=== PATIENT | female | born 1930 | race Caucasian/White ===

== ENCOUNTER 2017-02-25 17:09 | Emergency (ER) | payer OTHER, BC ==
--- NOTE | 2017-02-25 17:11 | PDOC ---
History of Present Illness - General History Source: Patient Exam Limitations: No Limitations - History of Present Illness Initial Comments: 02/25/17 17:22 The patient is a 86 year old female,with a significant past medical history of diverticulitis and chronic UTIs(resistance to cipro), who presents to the emergency department complaining of nausea and chills since this morning. Patient reports she went to bed feeling her normal self, but when she woke up this morning she experienced some rectal pressure, nausea, and chills. The patient reports associated left lower quadrant pain, but denies any vomiting, diarrhea, or constipation. The patient reports her symptoms are similar to when she has had diverticulitis in the past. She denies any fever, headache, or dizziness. She denies any dysuria, hematuria, frequency, or urgency. She denies any recent travel or sick contacts. Patient was recently started on a new antibiotic for her UTIs, but she has not been compliant with her dosage secondary to discomfort. Allergies: NKDA Past Surgical History: None reported Social History: Non smoker. No ETOH or drug use. PCP: Dr. Darlene Garrison <Blaine Real - Last Filed: 02/25/17 17:22> <Perfecto Diane - Last Filed: 02/25/17 18:35> - General Chief Complaint: Pain Stated Complaint: ABD, RECTAL PAIN Time Seen by Provider: 02/25/17 17:10 Past History <Blaine Real - Last Filed: 02/25/17 17:22> <Perfecto Diane - Last Filed: 02/25/17 18:35> - Past Medical History Allergies/Adverse Reactions: Allergies Allergy/AdvReac Type Severity Reaction Status Date / Time No Known Allergies Allergy Verified 02/25/17 17:10 Home Medications: Ambulatory Orders Atenolol [Tenormin -] 25 mg PO DAILY 02/25/17 Methenamine Mandelate 1 gm PO BID 02/25/17 Phenazopyridine HCl [Pyridium] 200 mg PO BID 02/25/17 Pramipexole Di-HCl [Mirapex ER] 0.75 mg PO BID 02/25/17 Review of Systems - Review of Systems Able to Perform ROS?: Yes Comments:: 02/25/17 17:22 GENERAL/CONSTITUTIONAL: es: +chills. No fever. No weakness. HEAD, EYES, EARS, NOSE AND THROAT: No change in vision. No ear pain or discharge. No sore throat. CARDIOVASCULAR: No chest pain or shortness of breath. RESPIRATORY: No cough, wheezing, or hemoptysis. GASTROINTESTINAL: Yes: +LLQ pain, +nausea, +rectal pressure. No vomiting, diarrhea or constipation. GENITOURINARY: No dysuria, frequency, or change in urination. MUSCULOSKELETAL: No joint or muscle swelling or pain. No neck or back pain. SKIN: No rash NEUROLOGIC: No headache, vertigo, loss of consciousness, or change in strength/ sensation. ENDOCRINE: No increased thirst. No abnormal weight change. HEMATOLOGIC/LYMPHATIC: No anemia, easy bleeding, or history of blood clots. ALLERGIC/IMMUNOLOGIC: No hives or skin allergy. <Blaine Real - Last Filed: 02/25/17 17:22> *Physical Exam - Vital Signs Last Vital Signs Temp Pulse Resp BP Pulse Ox 99.2 F 101 H 20 177/102 96 02/25/17 17:10 02/25/17 17:10 02/25/17 17:10 02/25/17 17:10 02/25/17 17:10 - Physical Exam Comments: 02/25/17 17:23 GENERAL: Awake, alert, and fully oriented, in no acute distress HEAD: No signs of trauma EYES: PERRLA, EOMI, sclera anicteric, conjunctiva clear ENT: Auricles normal inspection, hearing grossly normal, nares patent, oropharynx clear without exudates. Moist mucosa NECK: Normal ROM, supple, no lymphadenopathy, JVD, or masses LUNGS: Breath sounds equal, clear to auscultation bilaterally. No wheezes, and no crackles HEART: Regular rate and rhythm, normal S1 and S2, no murmurs, rubs or gallops ABDOMEN: Tenderness to palpation to the LLQ, but no guarding or rebound. Soft, normoactive bowel sounds. No masses EXTREMITIES: Normal range of motion, no edema. No clubbing or cyanosis. No cords, erythema, or tenderness NEUROLOGICAL: Cranial nerves II through XII grossly intact. Normal speech, normal gait SKIN: Warm, Dry, normal turgor, no rashes or lesions noted. <Blaine Real - Last Filed: 02/25/17 17:22> ED Treatment Course - LABORATORY CBC & Chemistry Diagram: 02/25/17 17:25 02/25/17 17:25 <Perfecto Diane - Last Filed: 02/25/17 18:35> Progress Note - Progress Note Progress Note: Rectal exam deferred by pt, risks and benefits discussed with pt. Chronic UTI, on Mendalamine and Pyridum for this. Resistant to Cipro. CT ordered for abdomen/pelvis, await results. Case will be endorsed to Dr. Mcfadden at 1900 for further disposition.d <Perfecto Diane - Last Filed: 02/25/17 18:35> *DC/Admit/Observation/Transfer - Attestations Scribe Attestion: 02/25/17 17:23 Documentation prepared by Blaine Real, acting as medical practice administrator for Perfecto Diane MD. <Blaine Real - Last Filed: 02/25/17 17:22> <Perfecto Diane - Last Filed: 02/25/17 18:35> Diagnosis at time of Disposition: Abdominal pain Qualifiers: Abdominal location: left lower quadrant Qualified Code(s): R10.32 - Left lower quadrant pain Urinary tract infection Qualifiers: Urinary tract infection type: site unspecified Hematuria presence: without hematuria Qualified Code(s): N39.0 - Urinary tract infection, site not specified - Discharge Dispostion Condition at time of disposition: Stable - Referrals Referrals: Darlene Garrison MD [Primary Care Provider] -
[2017-02-25] MEDS ORDERED: ONDANSETRON 4 MG/2 ML VIAL IVPUSH ONE (17:16)
[2017-02-25] MEDS ORDERED: SODIUM CHLORIDE 1,000 ML IV STA (17:16)
[2017-02-25] MEDS ORDERED: LEVOFLOXACIN 500 MG IVPB 100 ML IVPB ONE ×2 (17:17→17:25)
[2017-02-25] MEDS ORDERED: METRONIDAZOLE 500 MG PREMIXED 100 ML IVPB ONE ×2 (17:17→17:26)
[2017-02-25] MEDS ORDERED: ONDANSETRON 4 MG/2 ML VIAL ONE (17:25)
[2017-02-25 17:42] LABS: BASOPHIL 0.3 % (0-2.0); EOSINOPHIL 0.4 % (0-4.5); MCHC 33.3 g/dl (32.0-36.0); MEAN CELL VOLUME 89.9 fl (80-96); MEAN PLT VOLUME 8.5 fl (7.5-11.1); NEUTROPHILS 80.8 % (42.8-82.8); PLATELET COUNT 284 K/MM3 (134-434); RDW 13.5 % (11.6-15.6); WHITE BLOOD COUNT 12.8 K/mm3 (4.0-10.8)
[2017-02-25 17:48] LABS: PH,URINE 5.5 (4.5-8); URINE APPEARANCE Clear; URINE BILIRUBIN Negative (NEGATIVE); URINE GLUCOSE (UA) Trace (NEGATIVE); URINE KETONE Trace (NEGATIVE); URINE NITRITE Positive (NEGATIVE); URINE PROTEIN Trace (NEGATIVE)
[2017-02-25 17:50] LABS: URINE BLOOD 1+ (NEGATIVE); URINE COLOR DK YELLOW; URINE LEUK ESTERASE TRACE (NEGATIVE)
[2017-02-25 17:58] LABS: URINE BACTERIA MODERATE /hpf (NEGATIVE)
[2017-02-25 18:02] LABS: ALBUMIN 4.4 g/dl (3.5-5.0); ALK PHOS 51 U/L (32-92); ANION GAP 8 (8-16); BILIRUBIN,TOTAL 1.6 mg/dl (0.2-1.0); CALCIUM 9.3 mg/dl (8.4-10.2); CO2 24 mmol/L (22-28); CREATININE 0.6 mg/dl (0.6-1.3); GLUCOSE,RANDOM 92 mg/dl (74-106); SGOT/AST 22 U/L (10-42); SGPT/ALT 12 U/L (10-40); TOT PROT 6.6 g/dl (6.4-8.3)
--- NOTE | 2017-02-25 21:01 | PDOC ---
*Physical Exam - Vital Signs Last Vital Signs Temp Pulse Resp BP Pulse Ox 99 F 90 18 147/75 99 02/25/17 19:02 02/25/17 19:02 02/25/17 19:02 02/25/17 19:02 02/25/17 19:02 ED Treatment Course - LABORATORY CBC & Chemistry Diagram: 02/25/17 17:25 02/25/17 17:25 - ADDITIONAL ORDERS Additional order review: Laboratory Results 02/25/17 02/25/17 17:25 17:18 Sodium 132 L Potassium 3.6 Chloride 100 Carbon Dioxide 24 Anion Gap 8 BUN 15 Creatinine 0.6 Creat Clearance w eGFR > 60 Random Glucose 92 Calcium 9.3 Total Bilirubin 1.6 H AST 22 ALT 12 Alkaline Phosphatase 51 Total Protein 6.6 Albumin 4.4 Lipase 20 L Urine Color Dk yellow Urine Appearance Clear Urine pH 5.5 Ur Specific [place] <= 1.005 Urine Protein Trace Urine Glucose (UA) Trace Urine Ketones Trace Urine Blood 1+ H Urine Nitrite Positive Urine Bilirubin Negative Urine Urobilinogen 1.0 Ur Leukocyte Esterase Trace H Urine RBC 5-10 Urine WBC 3-5 Ur Epithelial Cells Few Urine Bacteria Moderate 02/25/17 17:25 RBC 4.85 MCV 89.9 MCHC 33.3 RDW 13.5 MPV 8.5 Neutrophils % 80.8 Lymphocytes % 12.8 Monocytes % 5.7 Eosinophils % 0.4 Basophils % 0.3 - Medications Given in the ED: ED Medications Discontinued Medications Generic Name Dose Route Start Last Admin Trade Name Nikky PRN Reason Stop Dose Admin Metronidazole 100 mls @ 100 mls/hr 02/25/17 17:17 02/25/17 17:40 Flagyl 500mg Premixed Ivpb - IVPB 02/25/17 18:16 100 mls/hr ONCE ONE Administration Levofloxacin 100 mls @ 100 mls/hr 02/25/17 17:17 02/25/17 18:10 Levaquin 500 Mg Premixed Ivpb - IVPB 02/25/17 18:16 100 mls/hr ONCE ONE Administration Sodium Chloride 1,000 mls @ 1,000 mls/hr 02/25/17 17:16 02/25/17 17:35 Normal Saline - IV 02/25/17 18:15 1,000 mls/hr ASDIR STA Administration Ondansetron HCl 4 mg 02/25/17 17:16 02/25/17 17:35 Zofran Injection IVPUSH 02/25/17 17:17 4 mg ONCE ONE Administration Progress Note - Progress Note Progress Note: The patient was transferred to pr from Dr. Eastman at 1900 hrs. Patient is an 86-year-old female who comes in complaining of left lower quadrant and rectal pain. Patient has a history of diverticulosis. Patient had a workup that included a white count of 12.8 but no left shift. Patient was afebrile here in the emergency room. Patient has a CAT scan pending. 21:00 Patient's CAT scan showed diverticula but no acute diverticulitis. Patient's appendix is at the upper limit of normal. Assessment and plan: This is a 86-year-old female with lower abdominal pain and rectal pain. Patient has a mildly elevated white count of 12.8 but no left shift. Patient is afebrile in the emergency room. On my exam patient is tender in both the right lower quadrant and suprapubic area. Patient's urine does show a urinary tract infection. Patient gives me a history of chronic urinary tract infections. Given the fact the patient has an elevated white count some mild right lower quadrant tenderness and rectal discomfort I am concerned that she may have a retrocecal appendix. Patient will be admitted to an observation bed overnight to see how she does be evaluated by a surgeon in the morning for possible appendicitis. *DC/Admit/Observation/Transfer Diagnosis at time of Disposition: Abdominal pain Qualifiers: Abdominal location: left lower quadrant Qualified Code(s): R10.32 - Left lower quadrant pain UTI (urinary tract infection) Qualifiers: Urinary tract infection type: site unspecified Hematuria presence: without hematuria Qualified Code(s): N39.0 - Urinary tract infection, site not specified - Discharge Dispostion Condition at time of disposition: Stable Admit: Yes - Referrals Referrals: Darlene Garrison MD [Primary Care Provider] - - Patient Instructions - Post Discharge Activity
--- NOTE | 2017-02-25 22:23 | HP ---
CHIEF COMPLAINT: Abdominal Pain PCP: Dr. Garrison HISTORY OF PRESENT ILLNESS: This is a 86 y/o woman with a past medical history of Diverticulitis, Hypertension, Chronic UTIs (Cipro resistant). Parkinson's. Who presents to the ED with nausea, chills, rectal pressure, and LLQ pain. Patient reports being treated for her chronic UTI, and not taking the medication because she was not improving. Patient reports having a constant dull cramping to her LLQ, with sometimes severe rectal pressure. She reports taking Miralex and having a loose brown BM today. Patient reports taking pyridum for her bladder spasms. Patient denies fever, cough, CP, N/V. ER course was notable for: (1) UA- +nitrate, trace leukocytes, +1 blood (2) WBC 12.8 (3) CTAP- +Diverticulitis Recent Travel: None PAST MEDICAL HISTORY: See HPI PAST SURGICAL HISTORY: Hernia Repair x2 Childbirth Social History: Smoking: Never Alcohol: None Drugs: None Lives with spouse, Independent Family History: Father- Diverticulitis Family hx Intestinal Issues Allergies No Known Allergies Allergy (Verified 02/25/17 17:10) HOME MEDICATIONS: Home Medications Medication Instructions Recorded Atenolol [Tenormin -] 25 mg PO DAILY 02/25/17 Methenamine Mandelate 1 gm PO BID 02/25/17 Phenazopyridine HCl [Pyridium] 200 mg PO BID 02/25/17 Polyethylene Glycol 3350 [Miralax 17 gm PO DAILY 02/25/17 (For Daily Use) -] Pramipexole Di-HCl [Mirapex ER] 0.75 mg PO BID 02/25/17 REVIEW OF SYSTEMS CONSTITUTIONAL: chills Absent: fever, diaphoresis, generalized weakness, malaise, loss of appetite, weight change HEENT: Absent: rhinorrhea, nasal congestion, throat pain, throat swelling, difficulty swallowing, mouth swelling, ear pain, eye pain, visual changes CARDIOVASCULAR: Absent: chest pain, syncope, palpitations, irregular heart rate, lightheadedness , peripheral edema RESPIRATORY: Absent: cough, shortness of breath, dyspnea with exertion, orthopnea, wheezing, stridor, hemoptysis GASTROINTESTINAL:abdominal pain, nausea, constipation Absent: abdominal distension, vomiting, diarrhea, melena, hematochezia GENITOURINARY: dysuria, urgency Absent: frequency, hesitancy, hematuria, flank pain, genital pain MUSCULOSKELETAL: Absent: myalgia, arthralgia, joint swelling, back pain, neck pain SKIN: Absent: rash, itching, pallor HEMATOLOGIC/IMMUNOLOGIC: Absent: easy bleeding, easy bruising, lymphadenopathy, frequent infections ENDOCRINE: Absent: unexplained weight gain, unexplained weight loss, heat intolerance, cold intolerance NEUROLOGIC: Absent: headache, focal weakness or paresthesias, dizziness, unsteady gait, seizure, mental status changes, bladder or bowel incontinence PSYCHIATRIC: Absent: anxiety, depression, suicidal or homicidal ideation, hallucinations. PHYSICAL EXAMINATION Vital Signs - 24 hr 02/25/17 02/25/17 17:10 19:02 Temperature 99.2 F 99 F Pulse Rate 101 H Pulse Rate [ 90 Left Apical] Respiratory 20 18 Rate Blood Pressure 177/102 Blood Pressure 147/75 [Left Arm] O2 Sat by Pulse 96 99 Oximetry (%) GENERAL: Awake, alert, and fully oriented, in no acute distress. HEAD: Normal with no signs of trauma. EYES: Pupils equal, round and reactive to light, extraocular movements intact, sclera anicteric, conjunctiva clear. No lid lag. EARS, NOSE, THROAT: Ears normal, nares patent, oropharynx clear without exudates. Dry mucous membranes. NECK: Normal range of motion, supple without lymphadenopathy, JVD, or masses. LUNGS: Breath sounds equal, clear to auscultation bilaterally. No wheezes, and no crackles. No accessory muscle use. HEART: Regular rate and rhythm, normal S1 and S2 without murmur, rub or gallop. ABDOMEN: Soft, not distended, no guarding, no rebound, no masses. No hepatomegaly or splenomegaly. LLQ, umbilical tenderness, hypoactive bowel sounds RECTAL EXAM: Patient declined MUSCULOSKELETAL: Normal range of motion at all joints. No bony deformities or tenderness. No CVA tenderness. UPPER EXTREMITIES: 2+ pulses, warm, well-perfused. No cyanosis. No clubbing. No peripheral edema. LOWER EXTREMITIES: 2+ pulses, warm, well-perfused. No calf tenderness. No peripheral edema. NEUROLOGICAL: Cranial nerves II-XII intact. Normal speech. Gait not observed. PSYCHIATRIC: Cooperative. Good eye contact. Appropriate mood and affect. SKIN: Warm, dry, normal turgor, no rashes or lesions noted, normal capillary refill. Laboratory Results - last 24 hr 02/25/17 02/25/17 02/25/17 17:18 17:25 17:25 WBC 12.8 H RBC 4.85 Hgb 14.6 Hct 43.6 MCV 89.9 MCH 30.0 MCHC 33.3 RDW 13.5 Plt Count 284 MPV 8.5 Neutrophils % 80.8 Lymphocytes % 12.8 Monocytes % 5.7 Eosinophils % 0.4 Basophils % 0.3 Sodium 132 L Potassium 3.6 Chloride 100 Carbon Dioxide 24 Anion Gap 8 BUN 15 Creatinine 0.6 Creat Clearance w eGFR > 60 Random Glucose 92 Lactic Acid Calcium 9.3 Total Bilirubin 1.6 H AST 22 ALT 12 Alkaline Phosphatase 51 Total Protein 6.6 Albumin 4.4 Lipase 20 L Urine Color Dk yellow Urine Appearance Clear Urine pH 5.5 Ur Specific [place] <= 1.005 Urine Protein Trace Urine Glucose (UA) Trace Urine Ketones Trace Urine Blood 1+ H Urine Nitrite Positive Urine Bilirubin Negative Urine Urobilinogen 1.0 Ur Leukocyte Esterase Trace H Urine RBC 5-10 Urine WBC 3-5 Ur Epithelial Cells Few Urine Bacteria Moderate 02/25/17 21:15 WBC RBC Hgb Hct MCV MCH MCHC RDW Plt Count MPV Neutrophils % Lymphocytes % Monocytes % Eosinophils % Basophils % Sodium Potassium Chloride Carbon Dioxide Anion Gap BUN Creatinine Creat Clearance w eGFR Random Glucose Lactic Acid 0.9 Calcium Total Bilirubin AST ALT Alkaline Phosphatase Total Protein Albumin Lipase Urine Color Urine Appearance Urine pH Ur Specific [place] Urine Protein Urine Glucose (UA) Urine Ketones Urine Blood Urine Nitrite Urine Bilirubin Urine Urobilinogen Ur Leukocyte Esterase Urine RBC Urine WBC Ur Epithelial Cells Urine Bacteria ASSESSMENT/PLAN: This is a 86 y/o woman with a PMHx of HTN, Diverticulitis, Parkinson's. Placed on Observation for Abdominal Pain for further evaluation of their emergent condition. Problem List - Problem (1) Abdominal pain Assessment/Plan: - Likely secondary to UTI - CTAP- Divericulia, no acute Diverticulitis, Appendix appears upper limit of normal - Appreciate Surgical Consult - WBC 12.5, no shift, lactic acid- 0.9, patient is afebrile - Blood Cultures-pending - Levofloxacin, Metronidazole given in ED for ?AP - Will repeat CBC, BMP - NPO - IVF - Monitor vitals Code(s): R10.9 - UNSPECIFIED ABDOMINAL PAIN Qualifiers: Abdominal location: left lower quadrant Qualified Code(s): R10.32 - Left lower quadrant pain (2) UTI (urinary tract infection) Assessment/Plan: - Hx Chronic UTIs, resistant to Ciprofloxacin - UA- +nitrate, +1 blood, trace leukocyte - Urine Culture-pending - Will hold her home med, start Ceftriaxone Code(s): N39.0 - URINARY TRACT INFECTION, SITE NOT SPECIFIED Qualifiers: Urinary tract infection type: site unspecified Hematuria presence: without hematuria Qualified Code(s): N39.0 - Urinary tract infection, site not specified; R31.9 - Hematuria, unspecified (3) HTN (hypertension) Assessment/Plan: - Controlled - Monitor BP - Continue Tenormin with parameters Code(s): I10 - ESSENTIAL (PRIMARY) HYPERTENSION (4) Parkinson disease Assessment/Plan: - Continue Mirapex (patient may use own) Code(s): G20 - PARKINSON'S DISEASE (5) DVT prophylaxis Assessment/Plan: - OOB - SCDs Code(s): [id number] - Visit type - Emergency Visit Emergency Visit: Yes ED Registration Date: 02/25/17 Care time: The patient presented to the Emergency Department on the above date and was hospitalized for further evaluation of their emergent condition. - New Patient This patient is new to me today: Yes Date on this admission: 02/26/17 - Critical Care Critical Care patient: No
[2017-02-25] MEDS ORDERED: ONDANSETRON 4 MG/2 ML VIAL IVPB PRN (22:27)
[2017-02-25] MEDS ORDERED: ACETAMINOPHEN 325 MG TABLET (FP) PO PRN (22:39)
[2017-02-25 23:31] VITALS: BMI 28.6
[2017-02-25] MEDS ORDERED: PRAMIPEXOLE DI HCL 0.75 MG PO SCH (23:45)
[2017-02-25] MEDS ORDERED: ATENOLOL 25 MG TABLET (FP) PO ONE (23:49)
[2017-02-26] MEDS: DEXTROSE 5%-0.45% SALINE 1,000 ML IV SCH ×2 (00:05→23:23)
[2017-02-26 07:53] LABS: BASOPHIL 0.9 % (0-2.0); EOSINOPHIL 0.2 % (0-4.5); MCH 29.6 pg (25.7-33.7); MCHC 33.2 g/dl (32.0-36.0); MEAN CELL VOLUME 89.2 fl (80-96); MEAN PLT VOLUME 8.8 fl (7.5-11.1); NEUTROPHILS 80.9 % (42.8-82.8); PLATELET COUNT 234 K/MM3 (134-434); RDW 13.1 % (11.6-15.6); WHITE BLOOD COUNT 8.7 K/mm3 (4.0-10.8)
[2017-02-26 08:12] LABS: ANION GAP 6 (8-16); CALCIUM 8.5 mg/dl (8.4-10.2); CO2 23 mmol/L (22-28); CREATININE 0.6 mg/dl (0.6-1.3); GLUCOSE,RANDOM 94 mg/dl (74-106); PHOSPHOROUS 2.6 mg/dl (2.5-4.6)
[2017-02-26] MEDS ORDERED: PT OWN MED DRAWER 7, Y5N ONE ×2 (09:19→21:15)
[2017-02-26] MEDS: CEFTRIAXONE 50 ML IVPB SCH (09:21)
--- NOTE | 2017-02-26 09:57 | CONSULT ---
- Consultation REQUESTING PROVIDER: BACILIO GANDHI CONSULT REQUEST: We have been asked to surgically evaluate this patient for abdominal pain. PCP:Laurel Anderson HISTORY OF PRESENT ILLNESS: CTSP for management of acute onset of LLQ pain w/ associated nausea and/or diarrhea w/o vomiting; she has a h/o diverticulitis in the past txed w/medical tx. She states she feels better since admission; there was a ? concern? for retrocecal appendicitis. PMHx: hypertension/frequent UTI's PSHx: hernia repaire # years ago Home Medications Medication Instructions Recorded Atenolol [Tenormin -] 25 mg PO DAILY 02/25/17 Methenamine Mandelate 1 gm PO BID 02/25/17 Phenazopyridine HCl [Pyridium] 200 mg PO BID 02/25/17 Polyethylene Glycol 3350 [Miralax 17 gm PO DAILY 02/25/17 (For Daily Use) -] Pramipexole Di-HCl [Mirapex ER] 0.75 mg PO BID 02/25/17 Allergies Allergy/AdvReac Type Severity Reaction Status Date / Time No Known Allergies Allergy Verified 02/25/17 17:10 PHYSICAL EXAM: GENERAL: Awake, alert, and fully oriented, in no acute distress. HEAD: Normal with no signs of trauma. EYES: sclera anicteric, conjunctiva clear. NECK: Normal ROM, supple without lymphadenopathy, JVD, or masses. ABDOMEN: Soft, nontender, not distended, normoactive bowel sounds, no guarding, no rebound, no masses. No organomegaly. No hernias MUSCULOSKELETAL: Normal ROM at all joints. No bony deformities or tenderness. No CVA tenderness. UPPER EXTREMITIES: 2+ pulses, warm, well-perfused. No cyanosis. Cap refill <2 seconds. No peripheral edema. LOWER EXTREMITIES: 2+ pulses, warm, well-perfused. No calf tenderness. No peripheral edema. NEUROLOGICAL: Normal speech, gait not observed. PSYCH: Cooperative. Good eye contact. Appropriate mood and affect. SKIN: Warm, dry, normal turgor, no rashes or lesions noted. Vital Signs Temperature 99.3 F 02/26/17 06:29 Pulse Rate 74 02/26/17 06:29 Respiratory Rate 18 02/26/17 06:29 Blood Pressure 127/62 02/26/17 06:29 O2 Sat by Pulse Oximetry (%) 94 L 02/26/17 08:33 Lab Results WBC 8.7 K/mm3 (4.0-10.8) D 02/26/17 07:00 RBC 4.35 M/mm3 (3.60-5.2) 02/26/17 07:00 Hgb 12.9 GM/dl (10.7-15.3) D 02/26/17 07:00 Hct 38.8 % (32.4-45.2) 02/26/17 07:00 MCV 89.2 fl (80-96) 02/26/17 07:00 MCHC 33.2 g/dl (32.0-36.0) 02/26/17 07:00 RDW 13.1 % (11.6-15.6) 02/26/17 07:00 Plt Count 234 K/MM3 (134-434) 02/26/17 07:00 Sodium 136 mmol/L (136-145) 02/26/17 07:00 Potassium 3.6 mmol/L (3.5-5.1) 02/26/17 07:00 Chloride 107 mmol/L (98-107) 02/26/17 07:00 Carbon Dioxide 23 mmol/L (22-28) 02/26/17 07:00 Anion Gap 6 (8-16) L 02/26/17 07:00 BUN 12 mg/dl (7-18) 02/26/17 07:00 Creatinine 0.6 mg/dl (0.6-1.3) 02/26/17 07:00 Random Glucose 94 mg/dl (74-106) 02/26/17 07:00 Calcium 8.5 mg/dl (8.4-10.2) 02/26/17 07:00 CT scan a/p reviewed; labs reviewed IMP: Nonspecific left colon colitis and abnormal findings w/r/t the left ureter (? source of her frequent ? UTI's); need for cysto/retrograde and or further urological w/u. PLAN: Trial of clear liquid diet and as per primary care team; no evidence of an acute surgical abdomen at this time. Kyaw Lyon MD FACS Visit type - Case Type Case Type: ED Admission - Emergency Emergency Visit: Yes ED Registration Date: 02/25/17 Care time: The patient presented to the Emergency Department on the above date and was hospitalized for further evaluation of their emergent condition. - New patient This patient is new to me today: No - Critical Care Critical Care patient: No
[2017-02-26] MEDS ORDERED: ATENOLOL 25 MG TABLET (FP) PO SCH ×3 (10:00→22:00)
[2017-02-26] MEDS: PRAMIPEXOLE 0.75 MG PO SCH ×2 (10:52→21:23)
--- NOTE | 2017-02-26 11:32 | DS ---
Physical Exam: SUBJECTIVE: Patient seen and examined, reports feeling better wants to go home. OBJECTIVE:This is a 86 y/o woman with a past medical history of Diverticulitis, Hypertension, Chronic UTIs (Cipro resistant). Parkinson's. Who presents to the ED with nausea, chills, rectal pressure, and LLQ pain. Patient reports being treated for her chronic UTI, and not taking the medication because she was not improving. Patient reports having a constant dull cramping to her LLQ, with sometimes severe rectal pressure. She reports taking Miralex and having a loose brown BM today. Patient reports taking pyridum for her bladder spasms. Patient denies fever, cough, CP, N/V. ER course was notable for: (1) UA- +nitrate, trace leukocytes, +1 blood (2) WBC 12.8 (3) CTAP- +Diverticulitis Vital Signs Period Temp Pulse Resp BP Sys/Jean Pulse Ox Last 24 Hr 99.3 F-99.3 F 74-102 17-18 127-145/62-64 93-94 PHYSICAL EXAM GENERAL: The patient is awake, alert, and fully oriented, in no acute distress. HEAD: Normal with no signs of trauma. EYES: PERRL, extraocular movements intact, sclera anicteric, conjunctiva clear. ENT: Ears normal, nares patent, oropharynx clear without exudates, moist mucous membranes. NECK: Trachea midline, full range of motion, supple. LUNGS: Breath sounds equal, clear to auscultation bilaterally, no wheezes, no crackles, no accessory muscle use. HEART: Regular rate and rhythm, S1, S2 without murmur, rub or gallop. ABDOMEN: Soft, diffuse abdominal tenderness, n ondistended, normoactive bowel sounds, no guarding, no rebound, no hepatosplenomegaly, no masses. EXTREMITIES: 2+ pulses, warm, well-perfused, no edema. NEUROLOGICAL: Cranial nerves II through XII grossly intact. Normal speech, gait not observed. PSYCH: Normal mood, normal affect. SKIN: Warm, dry, normal turgor, no rashes or lesions noted. LABS Laboratory Results - last 24 hr 02/26/17 02/26/17 07:00 07:00 WBC 8.7 D RBC 4.35 Hgb 12.9 D Hct 38.8 MCV 89.2 MCH 29.6 MCHC 33.2 RDW 13.1 Plt Count 234 MPV 8.8 Neutrophils % 80.9 Lymphocytes % 9.9 D Monocytes % 8.1 Eosinophils % 0.2 Basophils % 0.9 Sodium 136 Potassium 3.6 Chloride 107 Carbon Dioxide 23 Anion Gap 6 L BUN 12 Creatinine 0.6 Random Glucose 94 Calcium 8.5 Phosphorus 2.[address] of abd/pelvis w/contrast: mild annular wall thickening in the descending colon is most compatible with mild infectious vs inflammatory colitis, no evidence of acute diverticulitis, mild circumferential wall thickening along the distal ureter up to the ureterovesical junction, may be imflammatory vs infections vs neoplastic HOSPITAL COURSE: * patient was admitted from the emergency department for abdominal pain Likely secondary to UTI. general surgeon Dr Lyon was consulted and followed, leukocytosis resolved, patient remained afebrile, patient was treated with rocephin throughout admission. ct scan of abd/pelvis reviewed with patient and . patient does follow up at [facility] urology, Dr Wyatt, and prefers to follow up with her private urologist. a copy of ct report and images on cd-rom given to patient in hand. * patient has a past medical history of hypertension, b/p remained at goal, tenormin was continued with parameters. * patient has a past medical history of parkinsons, mirapex was continued. PLAN: - discharge home with strict follow up to urologist - continue ceftin as prescirbed (4) Parkinson disease Assessment/Plan: - Continue Mirapex (patient may use own) Code(s): G20 - PARKINSON'S DISEASE Date of Admission:02/25/17 Date of Discharge: 02/26/17 Minutes to complete discharge: 45 Discharge Summary Reason For Visit: ABD, RECTAL PAIN Current Active Problems Abdominal pain (Acute) DVT prophylaxis (Acute) HTN (hypertension) (Acute) Parkinson disease (Acute) UTI (urinary tract infection) (Acute) Condition: Improved - Instructions Diet, Activity, Other Instructions: resume bland diet take antibiotics as prescribed please follow up with your urologist within 1 week if any new or persistent symptoms develop please return to the emergency department. Referrals: Darlene Garrison MD [Primary Care Provider] - Disposition: HOME - Home Medications Comprehensive Discharge Medication List: Ambulatory Orders Atenolol [Tenormin -] 25 mg PO DAILY 02/25/17 Methenamine Mandelate 1 gm PO BID 02/25/17 Phenazopyridine HCl [Pyridium] 200 mg PO BID 02/25/17 Polyethylene Glycol 3350 [Miralax (For Daily Use) -] 17 gm PO DAILY 02/25/17 Pramipexole Di-HCl [Mirapex ER] 0.75 mg PO BID 02/25/17 This patient is new to me today: No Emergency Visit: Yes ED Registration Date: 02/25/17 Care time: The patient presented to the Emergency Department on the above date and was hospitalized for further evaluation of their emergent condition. Critical Care patient: No - Discharge Referral Referred to [facility] No
[2017-02-26] MEDS: PANTOPRAZOLE SODIUM 100 ML IVPB SCH (15:18)
--- NOTE | 2017-02-26 18:24 | EKG ---
Test Reason : Blood Pressure : / mmHG Vent. Rate : 100 BPM Atrial Rate : 100 BPM P-R Int : 192 ms QRS Dur : 078 ms QT Int : 356 ms P-R-T Axes : 054 014 051 degrees QTc Int : 459 ms NORMAL SINUS RHYTHM NONSPECIFIC ST ABNORMALITY ABNORMAL ECG NO PREVIOUS ECGS AVAILABLE REPEAT EKG IF CLINICALLY INDICATED Confirmed by PAVEL ESPINOSA MD ([id number]) on 02/26/2017 6:24:06 PM Referred By: CAESAR Confirmed By:PAVEL ESPINOSA MD
[2017-02-27] MEDS ORDERED: PT OWN MED DRAWER 7, Y5N ONE ×2 (09:44→11:27)
[2017-02-27 09:48] VITALS: BP 102/55; PULSE 72; TEMP 98.7
[2017-02-27] MEDS: CEFTRIAXONE 50 ML IVPB SCH (09:52)
[2017-02-27] MEDS: PANTOPRAZOLE SODIUM 100 ML IVPB SCH (09:52)
[2017-02-27] MEDS: PRAMIPEXOLE 0.75 MG PO SCH (09:54)
== END 2017-02-27 11:30 | disposition home or self-care (01) ==
LOC: FER 17:09 → FM/S 22:27
PROVIDERS: ADMIT Internal Medicine; ATTEND Nurse Practitioner Family
PROC: 3E033GC Introduction of Other Therapeutic Substance into Peripheral Vein, Percutaneous Approach (ICD-10-PCS; principal; 2017-02-25)
PROC: 3E03329 Introduction of Other Anti-infective into Peripheral Vein, Percutaneous Approach (ICD-10-PCS; 2017-02-25)
PROC: 3E0337Z Introduction of Electrolytic and Water Balance Substance into Peripheral Vein, Percutaneous Approach (ICD-10-PCS; 2017-02-25)
DX: R10.9 Unspecified abdominal pain (principal); I10 Essential (primary) hypertension; G20 Parkinson's disease; N39.0 Urinary tract infection, site not specified
CPT/HCPCS: 36415; 71010-TC; 74177-TC; 80048; 80053; 81003; 81015; 83605; 83690; 83735; 84100; 85025; 87086; 87186; 93005; 99284-25; G0378

== ENCOUNTER 2017-12-11 10:01 | Emergency (ER) | payer OTHER, BC ==
--- NOTE | 2017-12-11 10:27 | PDOC ---
History of Present Illness - General Chief Complaint: Pain Stated Complaint: LOWER ABDOMINAL PAIN FOR 1 WEEK Time Seen by Provider: 12/11/17 10:05 History Source: Patient Exam Limitations: No Limitations - History of Present Illness Initial Comments: 12/11/17 10:13 Ms Shah is an 87 yo F h/o Diverticulitis, Hypertension, Chronic UTIs (Cipro resistant), Parkinson's Disease who presents to the ED with nausea, chills, abdominal pain for 5 days Pain was severe when it began, located through out the entire abdomen Pain is described as sharp/achy Located diffusely, worse in the lower abdomen No fevers (+) chills No nausea Pt denies diarrhea, had bowel movement 2 days ago which she describes as "tremendous". Today, she had a normal bowel movement Denies dysuria PAST MEDICAL HISTORY: PMH: HTN, Chronic UTI, Diverticulitis See HPI PSH: Hernia Repair x 2 SH: Smoking: Never, Alcohol: None, Drugs: None Lives with spouse, Independent ALL: NKDA REVIEW OF SYSTEMS GENERAL/CONSTITUTIONAL: No: fever, chills, weakness, loss of appetite. HEAD, EYES, EARS, NOSE AND THROAT: No: change in vision, ear pain, discharge, sore throat, throat swelling. CARDIOVASCULAR: No: chest pain, lightheadedness, palpitations, syncope RESPIRATORY: No: cough, shortness of breath, wheezing, hemoptysis, stridor. GASTROINTESTINAL: Yes: abdominal pain No: nausea, vomiting, diarrhea GENITOURINARY: No: dysuria, hematuria, frequency, urgency, flank pain. MUSCULOSKELETAL: No: back pain, neck pain, joint pain, muscle swelling or pain SKIN AND BREASTS: No: lesions, pallor, rash or easy bruising. NEUROLOGIC: No: headache, vertigo, paresthesias, weakness ENDOCRINE: No: unexplained weight gain or loss HEMATOLOGIC/LYMPHATIC: No: anemia, easy bleeding, swelling nodes. PE: GENERAL: Awake, alert, and fully oriented, in no acute distress. HEAD: Normal with no signs of trauma. EYES: Pupils equal, round and reactive to light, extraocular movements intact, sclera anicteric, conjunctiva clear. No lid lag. EARS, NOSE, THROAT: Ears normal, nares patent, oropharynx clear without exudates. Dry mucous membranes. NECK: Normal range of motion, supple without lymphadenopathy, JVD, or masses. LUNGS: Breath sounds equal, clear to auscultation bilaterally. No wheezes, and no crackles. No accessory muscle use. HEART: Regular rate and rhythm, normal S1 and S2 without murmur, rub or gallop. ABDOMEN: Soft, not distended, RLQ tenderness, no guarding, no rebound, no masses. MUSCULOSKELETAL: Normal range of motion at all joints. No bony deformities or tenderness. No CVA tenderness. UPPER EXTREMITIES: 2+ pulses, warm, well-perfused. No cyanosis. No clubbing. No peripheral edema. LOWER EXTREMITIES: 2+ pulses, warm, well-perfused. No calf tenderness. No peripheral edema. NEUROLOGICAL: Cranial nerves II-XII intact. Normal speech. Gait not observed. PSYCHIATRIC: Cooperative. Good eye contact. Appropriate mood and affect. SKIN: Warm, dry, normal turgor, no rashes or lesions noted, normal capillary refill. 12/11/17 10:29 Past History - Past Medical History Allergies/Adverse Reactions: Allergies Allergy/AdvReac Type Severity Reaction Status Date / Time No Known Allergies Allergy Verified 12/11/17 10:04 Home Medications: Ambulatory Orders Atenolol [Tenormin -] 25 mg PO DAILY 02/25/17 Methenamine Mandelate 1 gm PO DAILY 02/25/17 Polyethylene Glycol 3350 [Miralax 119 gm Btl -] 17 gm PO DAILY 02/25/17 Pramipexole Di-HCl [Mirapex ER] 0.5 tab PO HS 02/25/17 Acetaminophen [Tylenol .Regular Strength -] 650 mg PO PRN PRN 12/11/17 Cephalexin Monohydrate [Keflex -] 500 mg PO BID #10 capsule 12/11/17 Levodopa 95 mg PO BID 12/11/17 Disorders: Yes (CHRONIC CYSTITIS) HTN: Yes - Surgical History Abdominal Surgery: Yes (UMBILICAL HERNIA REPAIR) - Suicide/Smoking/Psychosocial Hx Smoking History: Never smoked Have you smoked in the past 12 months: No Hx Alcohol Use: No Drug/Substance Use Hx: No Substance Use Type: None Hx Substance Use Treatment: No ED Treatment Course - LABORATORY CBC & Chemistry Diagram: 12/11/17 10:45 12/11/17 11:45 Medical Decision Making - Medical Decision Making 12/11/17 10:33 Pt has a history of Diverticulitis Presents with abdominal pain, no fevers She is concerned about recurrent diverticulitis DD: diverticulitis, appendicitis, colitis, sbo Will do: Labs IVF Tylenol for pain CT RE assess Laboratory Tests 12/11/17 12/11/17 12/11/17 10:45 10:55 11:45 WBC 6.6 Hgb 14.8 D Hct 45.2 D Plt Count 297 Sodium 137 Potassium 4.3 Chloride 109 H Carbon Dioxide 25 Anion Gap 3 L BUN 9 D Creatinine < 0.5 L Random Glucose 88 Total Bilirubin 1.2 H D Total Amylase 75 Lipase 64 L Urine Blood 1+ H Urine Nitrite Negative Ur Leukocyte Esterase 2+ H Urine RBC 5-10 Urine WBC 10-20 Urine Bacteria Many 12/11/17 15:15 CT demonstrates gallbladder distended and fluid filled, mural wall thickening, no stones no PCCF Will send for US Pt feels better Requesting something to eat 12/11/17 15:17 UA +, will treat with Keflex Pt already taking probiotic US demonstrates no evidene of cholecystitis Gallbladder is distended, no stones, no PCCF, no wall edema, no ductal dilitation Will discharge to home Will ask pt to follow up with PMD Review results 12/11/17 16:23 12/11/17 17:32 Clinical Impression: Abdominal pain, initial presentation UTI, initial presentation *DC/Admit/Observation/Transfer Diagnosis at time of Disposition: UTI (urinary tract infection) Qualifiers: Urinary tract infection type: acute cystitis Hematuria presence: without hematuria Qualified Code(s): N30.00 - Acute cystitis without hematuria Abdominal pain Qualifiers: Abdominal location: unspecified location Qualified Code(s): R10.9 - Unspecified abdominal pain - Discharge Dispostion Disposition: HOME Condition at time of disposition: Stable Decision to Admit order: No - Prescriptions Prescriptions: Cephalexin Monohydrate [Keflex -] 500 mg PO BID #10 capsule - Referrals - Patient Instructions Printed Discharge Instructions: DI for Urinary Tract Infection (UTI), DI for Abdominal Pain-Adult Additional Instructions: Ms Shah Thank you for coming in to the ER today Please be sure to follow up with your primary care physician Take antibiotics as prescribed Return to the ER for fevers chills any other concerns or complaints - Post Discharge Activity
[2017-12-11] MEDS ORDERED: ACETAMINOPHEN 1000 MG/100 ML VIAL (NON FORMULARY) IVPB ONE (10:28)
[2017-12-11] MEDS ORDERED: SODIUM CHLORIDE 1,000 ML IV STA (10:28)
[2017-12-11 10:35] VITALS: TEMP 97.8; BMI 28.7
[2017-12-11] MEDS ORDERED: ACETAMINOPHEN INJECTION 100 ML IVPB ONE (10:40)
[2017-12-11 10:59] LABS: HEMATOCRIT 45.2 % (32.4-45.2); HEMOGLOBIN 14.8 GM/dl (10.7-15.3); MCHC 32.7 g/dl (32.0-36.0); MEAN CELL VOLUME 91.6 fl (80-96); MEAN PLT VOLUME 8.4 fl (7.5-11.1); PLATELET COUNT 297 K/MM3 (134-434); RBC 4.94 M/mm3 (3.60-5.2); RDW 13.9 % (11.6-15.6); WHITE BLOOD COUNT 6.6 K/mm3 (4.0-10.8)
[2017-12-11 11:23] LABS: URINE APPEARANCE Clear; URINE BILIRUBIN Negative (NEGATIVE); URINE GLUCOSE (UA) Negative (NEGATIVE); URINE KETONE Negative (NEGATIVE); URINE NITRITE Negative (NEGATIVE); URINE PROTEIN Negative (NEGATIVE); URINE UROBILINOGEN 0.2 (0.2-1.0)
[2017-12-11 11:25] LABS: URINE COLOR AMBER; URINE LEUK ESTERASE 2+ (NEGATIVE)
[2017-12-11 12:06] LABS: URINE BACTERIA MANY /hpf (NEGATIVE)
[2017-12-11 12:31] LABS: ALBUMIN 3.8 g/dl (3.5-5.0); ALK PHOS 46 U/L (32-92); AMYLASE 75 U/L (25-125); ANION GAP 3 (8-16); BILIRUBIN,TOTAL 1.2 mg/dl (0.2-1.0); BLOOD UREA NITROGEN 9 mg/dl (7-18); CALCIUM 8.6 mg/dl (8.4-10.2); CHLORIDE 109 mmol/L (98-107); CO2 25 mmol/L (22-28); GLUCOSE,RANDOM 88 mg/dl (74-106); POTASSIUM 4.3 mmol/L (3.5-5.1); SGOT/AST 17 U/L (10-42); SODIUM 137 mmol/L (136-145); TOT PROT 6.8 g/dl (6.4-8.3)
[2017-12-11 12:34] LABS: CREATININE < 0.5 mg/dl (0.6-1.3)
[2017-12-11 12:35] LABS: SGPT/ALT < 8 U/L (10-40)
[2017-12-11 13:16] LABS: LIPASE 64 U/L (73-393)
[2017-12-11 14:33] VITALS: BP 122/77; PULSE 82
[2017-12-11] MEDS ORDERED: CEPHALEXIN MONOHYDRATE 500 MG CAPSULE (UD) PO ONE (16:30)
[2017-12-11] MEDS ORDERED: CEPHALEXIN MONOHYDRATE 500 MG CAPSULE (UD) ONE (16:34)
== END 2017-12-11 17:36 | disposition home or self-care (01) ==
LOC: FER 10:01
PROC: 3E033NZ Introduction of Analgesics, Hypnotics, Sedatives into Peripheral Vein, Percutaneous Approach (ICD-10-PCS; principal; 2017-12-11)
PROC: 3E0337Z Introduction of Electrolytic and Water Balance Substance into Peripheral Vein, Percutaneous Approach (ICD-10-PCS; 2017-12-11)
DX: N30.00 Acute cystitis without hematuria (principal); R10.9 Unspecified abdominal pain; I10 Essential (primary) hypertension; Z87.440 Personal history of urinary (tract) infections; G20 Parkinson's disease; K57.90 Diverticulosis of intestine, part unspecified, without perforation or abscess without bleeding
CPT/HCPCS: 36415; 74177-TC; 76705-TC; 80053; 81003; 81015; 82150; 83690; 85027; 87086; 87186; 99283-25; J0131; J7030

== ENCOUNTER 2018-05-24 12:16 | Emergency (ER) | payer OTHER, BC ==
[2018-05-24 12:36] VITALS: BP 120/92; PULSE 88; TEMP 98; BMI 29.0
[2018-05-24] MEDS ORDERED: KETOROLAC TROMETHAMINE 60 MG/2 ML VIAL IM ONE (13:07)
[2018-05-24] MEDS ORDERED: hydrOXYzine PAMOATE 25 MG CAPSULE (FP) PO ONE ×2 (13:07→13:20)
--- NOTE | 2018-05-24 13:07 | PDOC ---
History of Present Illness - General Chief Complaint: Back Pain Stated Complaint: RT SIDE UPPER BACK PAIN Time Seen by Provider: 05/24/18 12:43 - History of Present Illness Initial Comments: 05/24/18 15:24 Chief complaint: Upper back pain History of present illness: Several days ago the patient developed right upper back pain at the medial border of the scapula. The pain was worse with movement and change of positions, becoming severe with lying down and arising from the recumbent position. There was severe tenderness with direct pressure over the pain and with arm movement. Her is a physician, who suspected impending zoster, and began Valtrex. The pain resolved, but this morning she experienced similar pain on the left side. Review of systems: Denies lightheadedness, dizziness, vertigo, anterior chest pain, shortness of breath, nausea, diaphoresis, abdominal pain, visual or focal neurologic symptoms, unsteadiness of gait. Remainder systems reviewed and found to be negative Past medical history: Mild Parkinson's controlled with medication. Palpitations in the past, thought possibly due to paroxysmal atrial fibrillation, undergoing Holter monitoring now, and prescribed prophylactic Eliquis recently until results are available. Social/family history: Fully active, no disability, no tobacco alcohol or nonprescription drugs Family history: Reviewed and noncontributory Physical exam: Alert oriented no acute distress cheerful and cooperative. Afebrile, vital signs normal HEENT clear Neck supple without bruit mass or nodes. No point tenderness or deformity. Full range of motion without pain Chest clear to P&A. No rib cage or chest wall tenderness or deformity CV S1 and S2 normal without murmur rub or gallop pulses full and symmetric no JVD or edema no bruits Abdomen soft nontender without mass or organomegaly. Bowel sounds normal. Nondistended Extremities no CCE Skin clear, no rash, adequate turgor and wet mucous membranes Neurological C2 to 12 intact. Strength full and symmetric. No focal sensory or motor deficits. Gait stable and unimpaired Musculoskeletal: There is exquisite trigger point tenderness over the lower medial border of the scapula and adjacent musculature. Pain is aggravated with abduction of the arm, flexion and extension of the shoulder. There is also severely aggravated by lying and arising, or movement of the torso. Impression: Musculoskeletal trigger point pain. No evidence of cardiac or pulmonary disease. Plan: Symptomatic treatment. Recommended ice massage and then heat. Although a prolonged course of nonsteroidals was not recommended, 48 hour therapy with nonsteroidal anti-inflammatory/analgesic and follow-up if symptoms persist. Patient fully ambulatory and in no significant distress upon discharge to follow -up as directed Past History - Past Medical History Allergies/Adverse Reactions: Allergies Allergy/AdvReac Type Severity Reaction Status Date / Time No Known Allergies Allergy Verified 12/11/17 10:04 Home Medications: Ambulatory Orders Atenolol [Tenormin -] 25 mg PO DAILY 02/25/17 Pramipexole Di-HCl [Mirapex ER] 50 mg PO HS 02/25/17 Acetaminophen [Tylenol .Regular Strength -] 650 mg PO PRN PRN 12/11/17 Apixaban [Eliquis] 5 mg PO DAILY 05/24/18 Carbidopa/Levodopa [Rytary ER 61.25 mg-245 mg Cap] 1 each PO BID 05/24/18 Cyclobenzaprine HCl [Flexeril -] 10 mg PO TID #6 tablet 05/24/18 Ibuprofen 400 mg PO TID #6 tablet 05/24/18 COPD: No Disorders: Yes (CHRONIC CYSTITIS) HTN: Yes - Surgical History Abdominal Surgery: Yes (UMBILICAL HERNIA REPAIR) - Immunization History Immunization Up to Date: No - Suicide/Smoking/Psychosocial Hx Smoking History: Never smoked Have you smoked in the past 12 months: No Information on smoking cessation initiated: No Hx Alcohol Use: No Drug/Substance Use Hx: No Substance Use Type: None Hx Substance Use Treatment: No *Physical Exam - Vital Signs Last Vital Signs Temp Pulse Resp BP Pulse Ox 98 F 88 20 120/92 96 05/24/18 12:17 05/24/18 12:17 05/24/18 12:17 05/24/18 12:17 05/24/18 12:17 Moderate Sedation - Procedure Monitoring Vital Signs: Procedure Monitoring Vital Signs Temperature 98 F 05/24/18 12:17 Pulse Rate 88 05/24/18 12:17 Respiratory Rate 20 05/24/18 12:17 Blood Pressure 120/92 05/24/18 12:17 O2 Sat by Pulse Oximetry (%) 96 05/24/18 12:17 *DC/Admit/Observation/Transfer Diagnosis at time of Disposition: Upper back pain on left side, Trigger point with back pain - Discharge Dispostion Disposition: HOME Condition at time of disposition: Improved Decision to Admit order: No - Prescriptions Prescriptions: Cyclobenzaprine HCl [Flexeril -] 10 mg PO TID #6 tablet Ibuprofen 400 mg PO TID #6 tablet - Referrals Referrals: Kyaw Butler MD [Staff Physician] - 1 week - Patient Instructions Printed Discharge Instructions: DI for Thoracic Back Pain Additional Instructions: Ice massage, followed by heat as directed. Medication as directed, 48 hours only. Return to ER if pain is worse or additional symptoms develop. Otherwise see primary physician 2-3 days for follow-up. - Post Discharge Activity
[2018-05-24] MEDS ORDERED: KETOROLAC TROMETHAMINE 30 MG/1 ML VIAL ONE (13:21)
== END 2018-05-24 14:33 | disposition home or self-care (01) ==
LOC: FER 12:16
PROC: 3E0233Z Introduction of Anti-inflammatory into Muscle, Percutaneous Approach (ICD-10-PCS; principal; 2018-05-24)
DX: M54.9 Dorsalgia, unspecified (principal); M79.10 Myalgia, unspecified site; I10 Essential (primary) hypertension
CPT/HCPCS: 99282-25

== ENCOUNTER 2018-07-13 13:22 | Emergency (ER) | payer OTHER, BC ==
[2018-07-13 13:47] VITALS: TEMP 98.7; BMI 28.3
[2018-07-13] MEDS ORDERED: KETOROLAC TROMETHAMINE 15 MG/ML VIAL IVPUSH ONE (14:06)
[2018-07-13] MEDS ORDERED: KETOROLAC TROMETHAMINE 15 MG/ML VIAL ONE (14:08)
--- NOTE | 2018-07-13 15:53 | PDOC ---
History of Present Illness - General Chief Complaint: Pain, Acute Stated Complaint: neck pain Time Seen by Provider: 07/13/18 13:25 - History of Present Illness Initial Comments: 87 year female with PMH of Parkinson's (on dopaminergic) and atrial fibrillation (on Eliquis) presenting with 5 days of bilateral posterior shoulder pain now radiating to her neck. Patient states that she had some left shoulder pain that began to radiate to her right shoulder 5 days ago that was sudden onset, intermittent, and achy in quality. Since then the pain has began to migrate up her neck and ow she has a great deal of neck pain (worse with movement) ad neck stiffness. She has tried Tylenol and Tylenol 3 with minor relief as well as heat pack with moderate relief. She was having a lot of trouble sleeping last night so that is her greatest concern. Denies any fevers, chills, nausea, vomiting, numbness, or tingling. 07/13/18 15:52 Past History - Past Medical History Allergies/Adverse Reactions: Allergies Allergy/AdvReac Type Severity Reaction Status Date / Time No Known Allergies Allergy Verified 07/13/18 13:25 Home Medications: Ambulatory Orders Atenolol [Tenormin -] 25 mg PO HS 02/25/17 Pramipexole Di-HCl [Mirapex ER] 50 mg PO HS 02/25/17 Acetaminophen [Tylenol .Regular Strength -] 650 mg PO PRN PRN 12/11/17 Apixaban [Eliquis] 5 mg PO BID 05/24/18 Carbidopa/Levodopa [Rytary ER 61.25 mg-245 mg Cap] 1 each PO BID 05/24/18 Cyclobenzaprine HCl [Flexeril -] 10 mg PO TID #6 tablet 05/24/18 Hydrocodone/Acetaminophen [Vicodin 5-300 mg Tablet] 1 each PO Q6H PRN #12 tablet MDD 4 07/13/18 Cardiac Disorders: Yes (AFIB) COPD: No Disorders: Yes (CHRONIC CYSTITIS) HTN: Yes - Surgical History Abdominal Surgery: Yes (UMBILICAL HERNIA REPAIR) - Immunization History Immunization Up to Date: No - Suicide/Smoking/Psychosocial Hx Smoking History: Never smoked Have you smoked in the past 12 months: No Hx Alcohol Use: No Drug/Substance Use Hx: No Substance Use Type: None Hx Substance Use Treatment: No Review of Systems - Review of Systems Constitutional: No: Chills, Diaphoresis, Fever HEENTM: No: Eye Pain, Blurred Vision, Tearing Respiratory: No: Cough, Orthopnea, Shortness of Breath Cardiac (ROS): No: Chest Pain, Irregular Heart Rate ABD/GI: No: Diarrhea, Nausea, Vomiting : No: Burning, Dysuria, Discharge Musculoskeletal: Yes: Back Pain, Muscle Pain, Neck Pain. No: Joint Pain Integumentary: No: Lesions, Lumps Neurological: No: Numbness, Paresthesia, Tremors, Weakness Psychiatric: No: Anxiety, Depression Hematologic/Lymphatic: No: Anemia, Blood Clots, Easy Bleeding *Physical Exam - Vital Signs Last Vital Signs Temp Pulse Resp BP Pulse Ox 98.7 F 88 18 121/80 98 07/13/18 13:24 07/13/18 13:24 07/13/18 13:24 07/13/18 13:24 07/13/18 13:24 - Physical Exam General Appearance: Yes: Nourished, Appropriately Dressed. No: Apparent Distress HEENT: positive: EOMI, PREM, Normal ENT Inspection, Normal Voice Neck: positive: Trachea midline, Normal Thyroid, Rigid, Tender lateral, Other ( paraspinal muscle tenderness and upper trapezius tenderness). negative: Tender , Tender midline Respiratory/Chest: positive: Lungs Clear, Normal Breath Sounds. negative: Chest Tender, Respiratory Distress, Accessory Muscle Use Cardiovascular: positive: Regular Rhythm, Regular Rate Gastrointestinal/Abdominal: positive: Normal Bowel Sounds, Flat, Soft. negative : Tender Musculoskeletal: negative: Normal Inspection (tenderness over paraspinal cervical muscles and upper trapexius muscles bialterally), Muscle Spasm, Vertebral Tenderness Extremity: positive: Normal Capillary Refill, Normal Inspection, Normal Range of Motion. negative: Tender Integumentary: positive: Normal Color, Dry, Warm Neurologic: positive: Fully Oriented, Alert, Normal Mood/Affect, Normal Response , Motor Strength 5/5 Moderate Sedation - Procedure Monitoring Vital Signs: Procedure Monitoring Vital Signs Temperature 98.7 F 07/13/18 13:24 Pulse Rate 88 07/13/18 13:24 Respiratory Rate 18 07/13/18 13:24 Blood Pressure 121/80 07/13/18 13:24 O2 Sat by Pulse Oximetry (%) 98 07/13/18 13:24 ED Treatment Course - RADIOLOGY Radiology Studies Ordered: Category Date Time Status CERVICAL SPINE CT W/O CONTR [CT] Stat CT Scan 07/13/18 14:05 Taken - Medications Given in the ED: ED Medications Discontinued Medications Generic Name Dose Route Start Last Admin Trade Name Freq PRN Reason Stop Dose Admin Ketorolac Tromethamine 15 mg 07/13/18 14:06 07/13/18 14:21 Toradol Injection - IVPUSH 07/13/18 14:07 15 mg ONCE ONE Administration Medical Decision Making - Medical Decision Making 87 year old female with cervical paraspinal tenderness and upper trapezius tenderness without any red flag symptoms or VS abnormalities. 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 Mild spinal stenosis as well. Patient much improved after Toradol 15 IV. Patient discharged with vicodin for ight time use PRN and follow up. No fractures. Her is a physician and the patient has a reliable support network. 07/13/18 18:08 *DC/Admit/Observation/Transfer Diagnosis at time of Disposition: Neck pain - Discharge Dispostion Disposition: HOME Condition at time of disposition: Improved - Prescriptions Prescriptions: Hydrocodone/Acetaminophen [Vicodin 5-300 mg Tablet] 1 each PO Q6H PRN #12 tablet MDD 4 PRN Reason: Severe Pain - Referrals Referrals: Darlene Garrison MD [Primary Care Provider] - - Patient Instructions Printed Discharge Instructions: DI for Neck Pain Additional Instructions: The CT scan of you neck did ot show any fracture but did show a lot of arthritis. You have probably had this arthritis for a while. Your current pain is probably related to both your arthritis and a muscle spasm of your neck. Please use Tylenol and the vicodin at home. You can use the Tylenol every 4-6 hours for the neck pain and the Vicodin at night. Please follow up with your primary care doctor for further pain management advice. Please return to the ED if you have any new or worsening symptoms. - Post Discharge Activity
[2018-07-13 16:54] VITALS: BP 107/70; PULSE 85
--- NOTE | 2018-07-13 16:54 | PDOC ---
Attending Attestation - Resident Resident Name: [email or web address] - ED Attending Attestation I have performed the following: I have examined & evaluated the patient, The case was reviewed & discussed with the resident, I agree w/resident's findings & plan - HPI HPI: 07/13/18 16:51 Patient with history of intermittent shoulder and neck pain secondary to osteoarthritis in the past. Presents with atraumatic, afebrile, increasing neck stiffness and pain from the shoulders to the nuchal region over the last few days, worse today, having difficulty sleeping. No numbness or paresthesias in the arms or legs. No weakness. No gait change. No change in bowel or bladder function. - Physicial Exam PE: 07/13/18 16:52 On examination, the patient is awake, alert, and oriented. She appears well. She is holding her neck somewhat splinted due to pain on range of motion. She has mild decrease in flexion and moderate decrease in extension. She has moderate decrease in rotation to both the right and the left due to pain. There is no focal bony tenderness over the cervical spine. Neurological examination in the arms and legs reveals no motor or sensory deficit. Gait is intact. - Medical Decision Making 07/13/18 16:49 Imaging on-call results: 1. No acute cervical fracture 2. Mild anterolisthesis at various levels 3. 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 There is degenerative change without fracture or dislocation as reviewed by imaging auricular detoxification specialist. Patient is feeling somewhat better after 15 mg IV Toradol. Given the patient is on Eliquis for her atrial fibrillation, nonsteroidals are not advisable on an ongoing basis. Patient will be treated with Tylenol as needed and Vicodin at bedside. She has been advised to apply warm heating pad as well. Patient will follow-up with her primary care physician.
== END 2018-07-13 17:12 | disposition home or self-care (01) ==
LOC: FER 13:22
PROC: 3E0333Z Introduction of Anti-inflammatory into Peripheral Vein, Percutaneous Approach (ICD-10-PCS; principal; 2018-07-13)
DX: M54.2 Cervicalgia (principal); G20 Parkinson's disease; I48.91 Unspecified atrial fibrillation; I10 Essential (primary) hypertension
CPT/HCPCS: 72125-TC; 99282-25